=== PATIENT | female | born 1995 | race Caucasian/White ===

== ENCOUNTER 2023-12-04 17:48 | Observation (INO) ==
[2023-12-04 21:23] LABS: ABS Basophils 0.1 10^3/uL (0.0-0.1); ABS Eosinophils 0.1 10^3/uL (0.0-0.5); ABS Lymphocytes 3.9 10^3/uL (1.0-4.8); ABS Monocytes 0.8 10^3/uL (0.0-0.9); ABS Neutrophils 6.5 10^3/uL (1.5-7.6); Eosinophil % 1.2 %; Hematocrit 38.6 % (35-45); Hemoglobin 12.8 g/dL (11.5-14.3); Lymphocyte % 34.3 %; Mean Corpuscular Hemoglobin 30.2 pg (27-33); Mean Corpuscular Hgb Conc 33.1 g/dL (31-36); Mean Corpuscular Volume 91.2 fL (80-97); Platelet Count 301 10^3/uL (150-450); Red Blood Count 4.24 10^6/uL (3.63-4.92); Red Cell Distribution Width 14.1 % (12-17); White Blood Count 11.4 10^3/uL (3.8-11.8)
[2023-12-04] MEDS: Ondansetron 4 mg VIAL 2 MG/ML 2 ml VIAL IV ONE (21:44)
[2023-12-04] MEDS: Lactated Ringers 1000 ml BAG 1,000 ML IV ONE (21:44)
[2023-12-04 21:54] LABS: ALT 11 U/L (7-52); AST 16 U/L (13-39); Albumin 4.7 g/dL (3.2-5.2); Albumin/Globulin Ratio 2.4 (1-3); Alkaline Phosphatase 52 U/L (35-149); Anion Gap 9 mmol/L (2-16); Blood Urea Nitrogen 9 mg/dL (6-24); C Reactive Protein 1.19 mg/L (<8.01); CO2 Carbon Dioxide 25 mmol/L (22-32); Calcium 9.4 mg/dL (8.6-10.3); Chloride 103 mmol/L (101-111); Creatinine, Serum 0.68 mg/dL (0.51-0.95); Glucose 82 mg/dL (70-100); Lipase 13 U/L (11.0-82.0); Potassium 3.8 mmol/L (3.5-5.0); Sodium 137 mmol/L (135-145); Total Bilirubin 0.7 mg/dL (0.2-1.0); Total Protein 6.7 g/dL (6.4-8.9); eGFR CKD-EPI 123.9 (>60)
[2023-12-04 22:00] LABS: HCG Pregnancy < 0.60 mIU/mL
[2023-12-05 00:29] LABS: Hematocrit 33.7 % (35-45); Hemoglobin 11.3 g/dL (11.5-14.3)
[2023-12-05 03:15] LABS: Hematocrit 29.9 % (35-45)
[2023-12-05 05:33] LABS: % Iron Saturation 29 % (15-55); .Transferrin 303 mg/dL (203-362); Iron 121 ug/dL (50-212); Total Iron Binding Capacity 424 mcg/dL (250-450); Unsaturated Iron Binding 303 ug/dL
[2023-12-05 05:55] LABS: Ferritin 16.6 ng/mL (11-307)
[2023-12-05 05:59] LABS: Folate 17.94 ng/mL (5.90-24.80)
[2023-12-05 06:00] LABS: Vitamin B12 193 pg/mL (180-914)
[2023-12-05] MEDS: Pantoprazole 80 mg in NS BAG 80 MG/250 ML BAG IV SCH ×2 (06:34→17:58)
[2023-12-05] MEDS: Iohexol 350 (CONTRAST) 500 ML MDV IV ONE (06:34)
[2023-12-05] MEDS: Pantoprazole VIAL 40 MG VIAL IV ONE (06:34)
[2023-12-05 10:18] LABS: Hematocrit 34.6 % (35-45); Hemoglobin 11.6 g/dL (11.5-14.3)
[2023-12-05] MEDS: Ondansetron 4 mg VIAL 2 MG/ML 2 ml VIAL IV PRN (13:12)
[2023-12-05] MEDS ORDERED: Lidocaine 2% PF 5 ML VIAL ONE (14:45)
[2023-12-05] MEDS ORDERED: Naloxone 0.4 mg VIAL 0.4 mg/ml 1 ml VIAL IV PRN (15:37)
[2023-12-06 05:51] LABS: ABS Eosinophils 0.2 10^3/uL (0.0-0.5); ABS Lymphocytes 2.3 10^3/uL (1.0-4.8); ABS Monocytes 0.7 10^3/uL (0.0-0.9); ABS Neutrophils 2.8 10^3/uL (1.5-7.6); ABS Nucleated RBC 0.01 10^3/ul; Eosinophil % 3.9 %; Hematocrit 35.8 % (35-45); Lymphocyte % 37.8 %; Mean Corpuscular Hemoglobin 30.7 pg (27-33); Mean Corpuscular Hgb Conc 33.6 g/dL (31-36); Mean Corpuscular Volume 91.4 fL (80-97); Mean Platelet Volume 8.2 fL (7.5-11.2); Nucleated Red Blood Cells % 0.1 %/100WBC (0.0-0.8); Platelet Count 239 10^3/uL (150-450); Red Blood Count 3.92 10^6/uL (3.63-4.92); Red Cell Distribution Width 13.9 % (12-17)
[2023-12-06 06:05] LABS: Calcium 8.8 mg/dL (8.6-10.3); Creatinine, Serum 0.71 mg/dL (0.51-0.95); Potassium 4.3 mmol/L (3.5-5.0); eGFR CKD-EPI 120.9 (>60)
[2023-12-06 10:28] VITALS: BP 102/64
== END 2023-12-06 14:40 | disposition home or self-care (01) ==
LOC: ED 17:48 → EDHOLD 17:48 → SUATTDRO 12-05 05:06 → SSU 12-05 14:35
PROVIDERS: ADMIT Student in an Organized Health Care Education/Training Program; ATTEND Hospitalist
PROC: O.GIEGD (2023-12-05 14:30)